=== PATIENT | female | born 1990 | race Caucasian/White ===

== ENCOUNTER 2017-11-30 17:02 | Inpatient (IN) ==
[2017-11-30] MEDS ORDERED: MISOPROSTOL 200 MCG TABLET RECTAL PRN (17:09)
[2017-11-30] MEDS ORDERED: BUTORPHANOL TARTRATE 2 MG/1 ML VIAL IVP PRN (17:09)
[2017-11-30] MEDS ORDERED: Metoclopramide Inj 10 MG/2 ML VIAL IV PRN (17:09)
[2017-11-30] MEDS ORDERED: Nalbuphine Inj 20 MG/ML Ampule IVP PRN (17:09)
[2017-11-30] MEDS ORDERED: CITRIC ACID/SODIUM CITRATE 30 ML CUP PO PRN (17:09)
[2017-11-30] MEDS ORDERED: METHYLERGONOVINE MALEATE 0.2 MG/1 ML VIAL IM PRN (17:09)
[2017-11-30] MEDS ORDERED: Lidocaine 1% 10 MG/ML - 20 ML VIAL SUBCUT PRN (17:09)
[2017-11-30] MEDS ORDERED: ePHEDrine Inj 5 MG in Normal Saline Flush 1 ML IVP PRN (17:09)
[2017-11-30] MEDS ORDERED: Carboprost Inj 250 MCG/ML AMP IM PRN (17:09)
[2017-11-30] MEDS ORDERED: ONDANSETRON 4 MG/2 ML VIAL IVP PRN (17:09)
[2017-11-30] MEDS ORDERED: LIDOCAINE W/ SODIUM BICARB 0.5 ML SYR SUBD PRN (17:09)
[2017-11-30] MEDS ORDERED: LIDOCAINE HCL 2 % 10 ML JELLY URO-JECT TOPICAL PRN (17:09)
[2017-11-30] MEDS ORDERED: Phenylephrine Inj 50 MCG in Normal Saline Flush 0.5 ML IVP PRN (17:09)
[2017-11-30] MEDS ORDERED: Naloxone Inj 0.01 MG in Normal Saline Flush 1 ML IVP PRN (17:09)
[2017-11-30] MEDS ORDERED: NORMAL SALINE 10 ML SYRINGE FLUSH IVP PRN (17:09)
[2017-11-30] MEDS ORDERED: diphenhydrAMINE 50 MG/1 ML VIAL IVP PRN (17:09)
[2017-11-30] MEDS ORDERED: Famotidine Inj 20 MG in Normal Saline Flush 10 ML IVP PRN ×4 (17:09)
[2017-11-30] MEDS ORDERED: TERBUTALINE SULFATE 1 MG/1 ML SDV SUBCUT PRN (17:09)
[2017-11-30] MEDS ORDERED: OXYTOCIN 10 UNIT/1 ML IM PRN (17:09)
[2017-11-30] MEDS ORDERED: CefOXitin Inj 2 GM in Sodium Chloride 0.9% 100 ML IV PRN (17:09)
[2017-11-30] MEDS ORDERED: NALOXONE 0.4 MG/1 ML VIAL IVP PRN (17:09)
[2017-11-30] MEDS ORDERED: ACETAMINOPHEN 325 MG TABLET PO ONE (17:14)
[2017-11-30] MEDS ORDERED: Oxytocin 20 Units + LR 20 UNIT/1,000 ML BAG IV SCH (17:15)
[2017-11-30] MEDS ORDERED: Zolpidem Tab 5 MG TAB PO PRN (17:15)
[2017-11-30] MEDS ORDERED: ACETAMINOPHEN 500 MG TABLET PO ONE (17:45)
[2017-11-30 17:47] LABS: Hemoglobin [HGB] 12.1 g/dL (12.0-16.0); MEAN CORPUSCULAR HEMOGLOBIN 30.3 PG (27-31); MEAN CORPUSCULAR HGB CONC 32.7 g/dL (33-37); MEAN CORPUSCULAR VOLUME 92.5 FL (81-99); MEAN PLATELET VOLUME 11.5 FL (7.4-12.2)
[2017-11-30] MEDS: Lactated Ringers-OB Dept 1,000 ML PRIMARY IV SCH (17:50)
[2017-11-30 18:06] LABS: BLOOD UREA NITROGEN 10 mg/dL (7-22); SERUM ALBUMIN 3.6 g/dL (3.5-4.8); Uric Acid 3.3 mg/dl (2.5-6.2)
[2017-11-30 18:10] LABS: CLARITY,URINE CLEAR (CLEAR); COLOR,URINE YELLOW (Y); GLUCOSE, URINE (UA) NEGATIVE (NEG); OCCULT BLOOD,URINE NEGATIVE (NEG); PH,URINE 6.5 (5.0-8.5); PROTEIN,URINE NEGATIVE (NEG); URINE SAMPLE TYPE CLEAN CATCH URINE
[2017-11-30 18:11] LABS: BILIRUBIN,URINE NEGATIVE (NEG); UROBILINOGEN,URINE 0.2 EU/dL (0.2)
[2017-11-30] MEDS: Misoprostol Tab 100 MCG TAB VAGINAL SCH (21:00)
[2017-12-01] MEDS: Lactated Ringers-OB Dept 1,000 ML PRIMARY IV SCH ×4 (01:25→18:17)
[2017-12-01] MEDS: Misoprostol Tab 100 MCG TAB VAGINAL SCH ×3 (03:00→09:42)
[2017-12-01] MEDS: CALCIUM CARBONATE 500 MG (TUMS) CHEWABLE TABLET PO PRN ×2 (03:06→20:13)
[2017-12-01] MEDS ORDERED: Oxytocin 20 Units + LR 20 UNIT/1,000 ML BAG IV SCH (07:15)
--- NOTE | 2017-12-01 08:00 | OB.PROGRES ---
Interval History: 27 yo at 37 1/7 weeks gestation admitted last night for IOL for preeclampsia without severe features. 24 hour urine protein was 456 mg, several BPs >140/90 starting Thursday11/25/17, albeit most at home. S/p steroids 11/26/17 adn 11/27/17. She had felt better over the weekend and then yesterday felt nauseated, SOTELO, more swollen - overall much worse despite tylenol. On exam she did have increased swelling from last week. DTRs 3+. Given likely progression, decision made to proceed with IOL. S/p 2 doses of cytotec but contractions have slowed down. Has had increased back pain since admission. Not a lot of rest last night. [employer] hx - no h/o abnormal paps, last nl 03/2015 PMH - none PSH - tonsillectomy, bunionectomy FH - Mo, MGM, PGM, Fa - hypothyroid. No pertinent fam hx on FOB's side of family. 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 Never smoker, no etoh or illicit drug use. NKDA Objective - Cervical Exam Cervical Exam: 2-/-2, posterior, soft per KATJA Sibley. OP on bedside u/s [place]: none Heart Rate: baseline 140, moderate variability, +accels, -decels Heart Rate Interpretation Category: Category I - Labs CBC and BMP: 11/30/17 17:40 11/30/17 17:10 - Vital Signs Last Taken Vital Signs: Vital Signs - Last Taken Temperature 98.3 F 12/01/17 03:04 Pulse Rate 66 12/01/17 03:04 Respiratory Rate 20 12/01/17 03:04 Blood Pressure 126/79 12/01/17 03:04 Pulse Ox 99 12/01/17 03:04 Assessment and Plan - Patient Problems (1) Preeclampsia Current Visit: Yes Status: Acute Code(s): O14.90 - Unspecified pre-eclampsia , unspecified trimester Support Text: 27 yo at 37 1/7 weeks gestation, admitted for IOL for preeclampsia -s/p 2 doses of cytotec 25 mcg pv, started pit approx 1 hour ago -Rh negative -GBS negative -Will want an epidural -Continue close observation
--- NOTE | 2017-12-01 12:17 | OB.PROGRES ---
Interval History: Pit turned up to 8mU after check. Pt complaining only of back pain. Objective - Cervical Exam Cervical Exam: 2-3/80/-2, mid, soft [place]: none Heart Rate: baseline 140, mod variability, accels, one decel - no contraction noted - Labs CBC and BMP: 11/30/17 17:40 11/30/17 17:10 - Vital Signs Last Taken Vital Signs: Vital Signs - Last Taken Temperature 98.0 F 12/01/17 07:30 Pulse Rate 72 12/01/17 07:30 Respiratory Rate 18 12/01/17 07:30 Blood Pressure 125/78 12/01/17 07:30 Pulse Ox 97 12/01/17 07:30 Assessment and Plan - Patient Problems (1) Preeclampsia Current Visit: Yes Status: Acute Code(s): O14.90 - Unspecified pre-eclampsia , unspecified trimester Support Text: 27 yo at 37 1/7 weeks gestation, admitted for IOL for preeclampsia -s/p 2 doses of cytotec 25 mcg pv, on 8mU of pit, minimal change this morning -Rh negative -GBS negative -Will want an epidural -Continue close observation
[2017-12-01] MEDS: fentaNYL Inj 100 MCG/2 ML VIAL IV PRN ×4 (13:13→23:01)
[2017-12-01] MEDS ORDERED: Fent/Bupiv 2mcg/0.0625% Epid 250 ML ONE (15:19)
--- NOTE | 2017-12-01 15:43 | CRNA.PROCE ---
Central Neuraxis Block Placemt - - Safety Measures: Time Out Taken, Site Verified - - Type of Block: Epidural Reason for Block: Analgesia Moniters Used During Block: EKG, SPO2, NIBP Positioning: Sitting Skin Prep Used: Betadine Skin Infiltration - Enter Amount Used in Comment Field: 1% Xylocaine (mL): Yes ( wheal) Introducer User: 18 Gauge Jyoti Local Anesthetic - Enter Amount Used in Comment Field: 5.0 % Xylocaine with Dextrose (ml): Yes (5m neg) Number of Centimeters Catheter Threaded: 4 Bioclusive Dressing Applied: Yes Anesthesia Time - Other Weight: 92.079 kg Height: 5 ft 6 in Body Mass Index (BMI): 32.8
[2017-12-01] MEDS ORDERED: fentaNYL 2 MCG/BUPIVACAINE 0.0625%/NS 0.9% 250 ML BAG EPIDURAL SCH (15:45)
--- NOTE | 2017-12-01 15:45 | CRNA.PROGR ---
Anesthesia Time - - Start date: 12/01/17 End date: 12/01/17 - Procedure/Recovery Time Anesthesia : Time In: 15:00 - Other Weight: 92.079 kg Height: 5 ft 6 in Body Mass Index (BMI): 32.8 Physical Status: P2 Anesthesia Type: Epidural
--- NOTE | 2017-12-01 17:15 | OB.PROGRES ---
Interval History: Epidural placed around 1516, still with back pain and LLQ pain. Starting to get more feeling in legs Objective - Cervical Exam Cervical Exam: 4-5//-1, mild caput noted, IUPC replaced [place]: q2-3 mins Heart Rate: baseline 130s, mod variability, accels, early decels - Labs CBC and BMP: 11/30/17 17:40 11/30/17 17:10 - Vital Signs Last Taken Vital Signs: Vital Signs - Last Taken Temperature 98.0 F 12/01/17 07:30 Pulse Rate 72 12/01/17 07:30 Respiratory Rate 18 12/01/17 07:30 Blood Pressure 125/78 12/01/17 07:30 Pulse Ox 97 12/01/17 07:30 Assessment and Plan - Patient Problems (1) Preeclampsia Current Visit: Yes Status: Acute Code(s): O14.90 - Unspecified pre-eclampsia , unspecified trimester Support Text: 27 yo at 37 1/7 weeks gestation, IOL for preeclampsia -IUPC replaced, MVUs adequate now with better placement of IUPC -Epidural in place but increased pain so anesthesia will be up to reassess -OP with back pain and some couplets -Rh negative -GBS negative -Continue close observation
[2017-12-01] MEDS ORDERED: LIDOCAINE MPF 2% - 5 ML (20 MG/1 ML) ONE (17:43)
--- NOTE | 2017-12-02 00:39 | OB.DEL.SUM ---
Delivery Note Delivery Summary: 27 yo G1 now P1 admitted last night for IOL for preeclampsia without severe features. She received 2 doses of cytotec pv then pitocin this morning. SROM with clear fluid at around 1230, then she progressed nicely to complete at about 2030. She did have to have her epidural replaced around 1810 which really helped with pain control and allowed patient to rest and labor down. She pushed from 2044 until 2224 when she delivered via normal vaginal delivere a TAGA male in ROP position over a second degree perineal tear. A nuchal cord was reduced then anterior shoulder and posterior shoulder delivered without difficulty. A cord was then reduced from R leg. was placed on mom's abdomen. He was noted to have significant caput on the L side from an acynclitic presentation. Cord clamping was delayed approximately 45 seconds. The cord was double clamped then cut by dad. Pitocin infusion was then started. The placenta delivered spontaneously at 2245, intact with 3 vessel cord. She had a 2nd degree perineal laceration that was repaired in the usual fashion with 3-0 vicryl rapide. There was a small piece of R hymenal tissue that I attempted to reattach, but may just necrose off. EBL 350 cc. Mom and baby tolerated delivery well. Apgars 9,9. Cord gas pH 7.29, PCO2 35.0, HCO3 17.1, BE -9 Admit to and will watch BP closely. - Patient Problems (1) Preeclampsia Current Visit: Yes Status: Acute Code(s): O14.90 - Unspecified pre-eclampsia , unspecified trimester (2) Vaginal delivery Current Visit: Yes Status: Acute Code(s): O80 - Encounter for full-term uncomplicated delivery
[2017-12-02] MEDS ORDERED: CALCIUM CARBONATE 500 MG (TUMS) CHEWABLE TABLET PO PRN (01:03)
[2017-12-02] MEDS ORDERED: LANOLIN HPA 40 GM TUBE TOPICAL PRN (01:03)
[2017-12-02] MEDS ORDERED: ACETAMINOPHEN 325 MG TABLET PO PRN (01:03)
[2017-12-02] MEDS ORDERED: Oxytocin 20 Units + LR 20 UNIT/1,000 ML BAG IV SCH (01:03)
[2017-12-02] MEDS ORDERED: Nalbuphine Inj 20 MG/ML Ampule IVP PRN (01:03)
[2017-12-02] MEDS ORDERED: NORMAL SALINE 10 ML SYRINGE FLUSH IVP PRN (01:03)
[2017-12-02] MEDS ORDERED: diphenhydrAMINE 50 MG/1 ML VIAL IVP PRN (01:03)
[2017-12-02] MEDS ORDERED: ONDANSETRON 4 MG/2 ML VIAL IVP PRN (01:03)
[2017-12-02] MEDS ORDERED: LIDOCAINE HCL 2 % 10 ML JELLY URO-JECT TOPICAL PRN (01:03)
[2017-12-02] MEDS ORDERED: HYDROcodone-APAP 5 MG -325 MG TABLET PO PRN (01:03)
[2017-12-02] MEDS ORDERED: Ondansetron ODT Tab 4 MG TAB PO PRN (01:03)
[2017-12-02] MEDS ORDERED: diphenhydrAMINE 25 MG CAPSULE PO PRN (01:03)
[2017-12-02] MEDS ORDERED: GLYCERIN/WITCH HAZEL 1 BOX TOPICAL PRN (01:03)
[2017-12-02] MEDS: IBUPROFEN 800 MG TABLET PO PRN ×2 (01:29→11:48)
[2017-12-02] MEDS ORDERED: RHO(D) IMMUNE GLOBULIN 1500 UNIT(300 mcg)SYRIN IM PRN (03:01)
[2017-12-02] MEDS: BENZOCAINE/MENTHOL SPRAY 56 GM BOTTLE TOPICAL PRN (04:04)
[2017-12-02] MEDS: DOCUSATE 100 MG CAPSULE PO SCH ×2 (09:47→20:37)
--- NOTE | 2017-12-02 16:54 | OB.PROGRES ---
Subjective Pain Management: PO Ramos Catheter: No Diet: Regular Feeding Method: Exculsively Ambulating: Yes Concerns / Additional Information: Pain controlled but significant perineal pain. No SOTELO, RUQ pain, vision changes. Swelling improving. Objective - General General Appearance: POSITIVE: No Acute Distress, Cooperative - Cardiovacular Cardiovascular Exam: POSITIVE: RRR Edema: +2 Pedal Edema Extremities: Negative Jayne's - Bilaterally - Respiratory Respiratory Exam: POSITIVE: Clear to Auscultation - Bilaterally, Breathing Non Labored - Reflexes Deep Tendon Reflex (indicate extremity in comment field): Normal but brisk +3 - Fundus/Lochia/Perineum Uterus Consistency: Firm Uterus Position: POSITIVE: At Umbilicus Lochia Amount: Small 10-25 ml Lochia Color: Rubra/Red Perineum Description: POSITIVE: Edematous (but improving) Assesstment / Plan (1) Preeclampsia Current Visit: Yes Status: Acute (2) Vaginal delivery Current Visit: Yes Status: Acute Support Text: 27 yo G1 now P1, s/p after IOL for preeclampsia without severe features. Pressures have been normal, no severe features. -Pain well controlled -Breast feeding, continue supporting -Anticipate d/c tomorrow morning -Rhogam today
[2017-12-03 05:26] LABS: Hematocrit [HCT] 34.9 % (37.0-47.0); Hemoglobin [HGB] 11.2 g/dL (12.0-16.0); MEAN CORPUSCULAR HEMOGLOBIN 30.4 PG (27-31); MEAN CORPUSCULAR HGB CONC 32.1 g/dL (33-37); MEAN CORPUSCULAR VOLUME 94.6 FL (81-99); MEAN PLATELET VOLUME 11.5 FL (7.4-12.2); RED BLOOD COUNT 3.69 10^6/uL (4.20-5.40)
[2017-12-03] MEDS ORDERED: Prenatal Multivitamin Tab 1 TAB TAB PO SCH (09:00)
[2017-12-03] MEDS: DOCUSATE 100 MG CAPSULE PO SCH (09:17)
[2017-12-03] MEDS: IBUPROFEN 800 MG TABLET PO PRN (09:17)
--- NOTE | 2017-12-03 10:14 | DCSUMMARY ---
Hospitalization Summary Admit Date: 11/30/17 Discharge Date: 12/03/17 Primary Diagnosis:: Preeclampsia without severe features Secondary Diagnosis:: S/p vaginal delivery with 2nd degree perineal laceration Delivery Type: Vaginal Hospital Course: 27 yo G1 now P1 was admitted at 37 0/7 weeks gestation (by LMP and 1st trimester u/s) for IOL 2/2 Preeclampsia. 24 hour urine protein was 456 mg. She did receive steroids about 4 days prior to delivery. She was given pv cytotec x2 doses overnight, then started on pitocin in the morning. She SROM'd around noon and IUPC was placed. The IUPC did need replaced and then showed adequate contractions. She progressed to complete by 6pm and was allowed to labor down with a good epidural in place. She then pushed for about 1 hour 35 minutes and delivered a TAGA male in ROP presentation over a second degree perineal laceration. She is breast feeding, did struggle last night with his latch. is assisting. She did have significant perineal edema post delivery, which has improved but now with echymosis and continues to be quite tender. / Postop Complications: none apparent Complications: The had a very large L sided occipital caput that resolved quickly after delivery. Exam - Vitals Vital Signs: Vital Signs Temperature 98.0 F Temperature Source Oral Pulse Rate [Pulse Oximeter] 76 Pulse Rate 71 Respiratory Rate 16 Blood Pressure [Right Arm] 120/83 Blood Pressure 121/69 Pulse Ox 99 Oxygen Delivery Method Room Air Height 5 ft 6 in Weight 203 lb - General General Appearance: No Acute Distress, Cooperative - Head Head Exam: Normal Inspection - Eye Eye Exam: POSITIVE: Normal Appearance - Respiratory Respiratory Exam: POSITIVE: Clear to Auscultation - Bilaterally, Breathing Non Labored - Cardiovascular Cardiovascular Exam: POSITIVE: RRR - GI/Abdominal GI/Abdominal Exam: POSITIVE: Normal Bowel Sounds - External Exam: POSITIVE: Swelling (improved), Ecchymosis (R labia) - Extremities Extremities Exam: POSITIVE: Normal Inspection, Negative Jayne's sign, +1 Edema - Neurological Neurological Exam: POSITIVE: Alert, Oriented x 3 - Psychiatric Psychiatric Exam: POSITIVE: Normal Affect, Normal Mood Patient Problems - Patient Problem List (1) Preeclampsia Status: Acute Code(s): O14.90 - Unspecified pre-eclampsia, unspecified trimester Category: Medical (2) Vaginal delivery Status: Acute Code(s): O80 - Encounter for full-term uncomplicated delivery Support Text: 27 yo G1 now P1 POD 2 s/p after IOL for preeclampsia. -Pain well controlled -Breast feeding well -BPs hae been stable since delivery, no severe symproms. Will monitor BP at home and knows severe symptoms to watc for -F/u in 1 week and again in 6 weeks Category: Medical
[2017-12-03 11:01] VITALS: BP 133/76; RESP 18; TEMP 97.8; O2SAT 97
[2017-12-03] MEDS: BENZOCAINE/MENTHOL SPRAY 56 GM BOTTLE TOPICAL PRN (12:14)
== END 2017-12-03 12:32 | disposition home or self-care (01) | DRG 775 ==
LOC: OBIP 17:04
PROVIDERS: ADMIT Student in an Organized Health Care Education/Training Program; ATTEND Student in an Organized Health Care Education/Training Program

== ENCOUNTER 2019-04-24 05:13 | Inpatient (IN) ==
[2019-04-24] MEDS: fentaNYL Inj 100 MCG/2 ML VIAL IVP PRN ×2 (05:57→07:14)
[2019-04-24] MEDS ORDERED: Oxytocin 20 Units + LR 20 UNIT/1,000 ML BAG IV ONE (06:36)
[2019-04-24] MEDS ORDERED: ACETAMINOPHEN 325 MG TABLET PO PRN (07:55)
[2019-04-24] MEDS ORDERED: Nalbuphine Inj 20 MG/ML Ampule IVP PRN (07:55)
[2019-04-24] MEDS ORDERED: ONDANSETRON 4 MG/2 ML VIAL IVP PRN (07:55)
[2019-04-24] MEDS ORDERED: LANOLIN HPA 40 GM TUBE TOPICAL PRN (07:55)
[2019-04-24] MEDS ORDERED: Ondansetron ODT Tab 4 MG TAB PO PRN (07:55)
[2019-04-24] MEDS ORDERED: DIPH,PERTUSS,TET(ADACEL) VAC/PF 0.5 ML (Tdap) IM ONE (07:55)
[2019-04-24] MEDS ORDERED: diphenhydrAMINE 50 MG/1 ML VIAL IVP PRN (07:55)
[2019-04-24] MEDS ORDERED: BENZOCAINE/MENTHOL SPRAY 56 GM BOTTLE TOPICAL PRN (07:55)
[2019-04-24] MEDS ORDERED: Lidocaine 1% 10 MG/ML - 20 ML VIAL INTRADERM PRN (07:55)
[2019-04-24] MEDS ORDERED: GLYCERIN/WITCH HAZEL 1 BOX TOPICAL PRN (07:55)
[2019-04-24] MEDS ORDERED: diphenhydrAMINE 25 MG CAPSULE PO PRN (07:55)
[2019-04-24] MEDS ORDERED: HYDROcodone-APAP 5 MG -325 MG TABLET PO PRN (07:55)
[2019-04-24] MEDS ORDERED: CALCIUM CARBONATE 500 MG (TUMS) CHEWABLE TABLET PO PRN (07:55)
[2019-04-24] MEDS ORDERED: Oxytocin 20 Units + LR 20 UNIT/1,000 ML BAG IV SCH (07:55)
[2019-04-24] MEDS ORDERED: LIDOCAINE HCL 2 % 10 ML JELLY URO-JECT TOPICAL PRN (07:55)
--- NOTE | 2019-04-24 07:59 | OB.DEL.SUM ---
Delivery Note Delivery Summary: Pt is a 28 yo G2 now P2 at 39 3/7 weeks gestation who presented to labor and delivery this morning with painful, regular uterine contractions. She states that she awoke around 0300 this morning with increased pain. She stayed home for a short period of time and then came in for evaluation. Her GBS status was nega tive. Her cervix on admission (0530) was 3+/60/-2. She progressed very quickly through active labor and was complete and had the urge to push an hour later. I was called at that time and headed to the hospital immediately. Baby delivered with assistance from the labor and delivery nurses at 0642. I arrived in the pt's room at 0644. The baby was on the warmer at that time, getting some PEEP for airway support related to the quick delivery. I turned my attention to mom. Cord gases and cord blood were obtained for analysis. The placenta delivered spontaneously and intact, with a 3 vessel cord, at 0647. The vagina and perineum were examined and a small, first degree vaginal laceration was noted and repaired in a routine fashion with 3-0 vicryl rapide suture after infiltration of the area with 1% lidocaine. There was then excellent hemostasis. Apgars were 7 at 1 minute and 8 at 5 minutes. Baby weighed 7#10 and was 20 inches long. EBL 300 cc. Both mom and baby tolerated delivery well and are in stable condition at this time.
[2019-04-24] MEDS: IBUPROFEN 800 MG TABLET PO PRN ×2 (09:28→20:11)
[2019-04-24 11:27] LABS: BASOPHILS # (AUTO) 0.01 10*3/UL; BASOPHILS % (AUTO) 0.1 % (0-1); EOSINOPHILS # (AUTO) 0.02 10*3/UL; EOSINOPHILS % (AUTO) 0.2 % (0-8); Hemoglobin [HGB] 13.1 g/dL (12.0-16.0); MEAN CORPUSCULAR VOLUME 93.6 FL (81-99); MEAN PLATELET VOLUME 13.5 FL (7.4-12.2); MONOCYTES # (AUTO) 0.53 10*3/UL (0.3-0.8); MONOCYTES % (AUTO) 5.7 % (5-15); NEUTROPHILS % (AUTO) 74.3 % (50-80); RED BLOOD COUNT 4.38 10^6/uL (4.20-5.40)
[2019-04-24 11:34] LABS: PLATELET MORPHOLOGY COMMENT NORMAL MORPHOLOGY (NORM); RBC MORPHOLOGY COMMENT NORMAL MORPHOLOGY (NORM); WBC MORPHOLOGY COMMENT NORMAL MORPHOLOGY (NORM)
[2019-04-24] MEDS ORDERED: RHO(D) IMMUNE GLOBULIN 1500 UNIT(300 mcg)SYRIN IM PRN (12:05)
[2019-04-24 19:52] VITALS: RESP 16
[2019-04-24] MEDS ORDERED: DOCUSATE 100 MG CAPSULE PO SCH (22:15)
[2019-04-25 01:40] VITALS: BP 112/74; TEMP 98.1; O2SAT 95
[2019-04-25 04:39] LABS: Hematocrit [HCT] 35.6 % (37.0-47.0); Hemoglobin [HGB] 11.2 g/dL (12.0-16.0); MEAN CORPUSCULAR HGB CONC 31.5 g/dL (33-37); MEAN CORPUSCULAR VOLUME 94.9 FL (81-99); MEAN PLATELET VOLUME 12.3 FL (7.4-12.2); RED BLOOD COUNT 3.75 10^6/uL (4.20-5.40)
--- NOTE | 2019-04-25 08:30 | DCSUMMARY ---
Hospitalization Summary Admit Date: 04/24/19 Discharge Date: 04/25/19 Primary Diagnosis:: s/p Delivery Type: Vaginal Hospital Course: 28 yo G2 now P2 admitted early yesterday morning at 39 3/7 weeks gestataion. She had started mateo about 0300. Was 3.5 cm on arrival and at 0642 delivered precipitously by the nursing staff. She delivered a TAGA male . Apgars 7, 8. She had a 1st degree laceration that was repaired. She recieved rhogam today prior to discharge. / Postop Complications: none apparent Complications: none apparent Exam - Vitals Vital Signs: Vital Signs Temperature 98.1 F Temperature Source Oral Pulse Rate [Pulse Oximeter 90 Right] Respiratory Rate 16 Blood Pressure [Right Arm] 112/74 Pulse Ox 95 Oxygen Delivery Method Room Air Height 5 ft 6 in Weight 199 lb - General General Appearance: No Acute Distress, Cooperative - Head Head Exam: Normal Inspection - Respiratory Respiratory Exam: POSITIVE: Clear to Auscultation - Bilaterally, Breathing Non Labored - Cardiovascular Cardiovascular Exam: POSITIVE: RRR - GI/Abdominal GI/Abdominal Exam: POSITIVE: Normal Bowel Sounds - Exam: NEGATIVE: Vaginal Discharge - Extremities Extremities Exam: POSITIVE: No Edema Present. NEGATIVE: Calf Tenderness - Neurological Neurological Exam: POSITIVE: Alert, Oriented x 3 - Psychiatric Psychiatric Exam: POSITIVE: Normal Affect, Normal Mood - Integumentary Integumentary Exam: POSITIVE: Normal Color Data Peritnent Studies: 04/24/19 04/25/19 05:53 04:30 WBC 9.29 9.85 Hgb 13.1 11.2 L Hct 41.0 35.6 L Plt Count 133 L 143 Patient Problems - Patient Problem List (1) (normal spontaneous vaginal delivery) Current Visit: Yes Status: Acute Code(s): O80 - Encounter for full-term uncomplicated delivery Support Text: 28 yo G2 now P2, PPD 1 s/p Pain well controlled Breast feeding, milk is not in yet though 's blood type O+, mom O- so given rhogam prior to discharge Rxs for 800 mg ibuprofen and colace sent to the pharmacy F/u for pp check at 2 months pp Category: Medical
[2019-04-25] MEDS ORDERED: DOCUSATE 100 MG CAPSULE PO SCH (09:00)
[2019-04-25] MEDS ORDERED: Prenatal Multivitamin Tab 1 TAB TAB PO SCH (09:00)
== END 2019-04-25 10:34 | disposition home or self-care (01) | DRG 807 ==
LOC: OBOP 05:13 → OBIP 07:06
PROVIDERS: ADMIT Family Medicine; ATTEND Student in an Organized Health Care Education/Training Program